=== PATIENT | female | born 1940 | race Caucasian/White ===

== ENCOUNTER → 2017-03-14 | Outpatient (CLI) | payer MEDICARE, BC ==
--- NOTE | 2017-03-15 09:09 | WOMENS IMAGING REPORT ---
EXAM DESCRIPTION: 3D SCREENING MAMMO BILAT COMPLETED DATE/TIME: 03/14/2017 11:24 am REASON FOR STUDY: SCREENING MAMMO Z12.31 ENCNTR SCREEN MAMMOGRAM FOR MALIGNANT NEOPLASM OF DL COMPARISON: 03/13/2016 and 03/01/2015. TECHNIQUE: Standard craniocaudal and mediolateral oblique views of each breast recorded using digita l acquisition and breast tomosynthesis. LIMITATIONS: None. FINDINGS: No masses, calcifications or architectural distortion. No areas of suspicion. Read with the assistance of CAD. .[facility] - R2 Cenova Version 1.3 .[facility] Imaging - R2 Cenova Version 1.3 .[facility] - R2 Cenova Version 2.4 .[facility] - R2 Cenova Version 2.4 .[facility] - R2 Neonatal Nurse Practitioner Version 9.2 IMPRESSION: NORMAL MAMMOGRAM. BIRADS 1. BREAST DENSITY: a. The breasts are almost entirely fatty. BIRAD: 1 NEGATIVE RECOMMENDATION: ROUTINE SCREENING COMMENT: The patient has been notified of the results by letter per SA requirements. Additional no tification policies are in place for contacting patient with suspicious or incomplete findings. Quality ID #225: The [employer] recommends an annual screening mammogram for women aged 40 years or over. This facility utilizes a reminder system to ensure that all patients receive reminder letters, and/or direct phone calls for appointments. This includes reminders for routine scr eening mammograms, diagnostic mammograms, or other Breast Imaging Interventions when appropriate. Th is patient will be placed in the appropriate reminder system. The [employer] (A[employer]) has developed recommendations for screening MRI of the breast s in certain patient populations, to be used in conjunction with mammography. Breast MRI surveillanc e may be appropriate for women with more than 20% lifetime risk of developing breast cancer as deter mined by genetic testing, significant family history of the disease, or history of mantle radiation f or Hodgkins Disease. ACR Practice Guidelines 2008. DBT Technology DBT is a type of tomographic mammography. With conventional mammography, overlapping breast tissue ma y make lesions difficult to detect, even with good compression. DBT uses an x-ray tube that rotates a round the breast, taking images at different angles. These images are then combined to create thin sl ices of the breast that the radiologist can view as a 3D reconstruction. The Ultracell unit can perform full-field digital mammograms (2D imaging); or DBT (3D imaging); or both, in a combination mode that quickly performs both the mammogram and the tomosynthesis scan while the breast is still compressed. PQRS 6045F: Fluoroscopic imaging is not utilized for breast tomosynthesis. TECHNICAL DOCUMENTATION: FINDING NUMBER: (1) ASSESSMENT: (1) JOB ID: [id number] [employer]- All Rights Reserved
== END ==
LOC: WI 11:00
DX: Z12.31 Encounter for screening mammogram for malignant neoplasm of breast (principal)
CPT/HCPCS: 77063; G0202; 77067

== ENCOUNTER → 2018-09-06 | Outpatient (CLI) | payer MEDICARE, BC ==
--- NOTE | 2018-09-06 12:46 | WOMENS IMAGING REPORT ---
EXAM DESCRIPTION: 3D SCREENING MAMMO BILAT COMPLETED DATE/TIME: 09/06/2018 11:46 am REASON FOR STUDY: Z12.31 ROUTINE 3D BILATERAL SCREENING Z12.31 ENCNTR SCREEN MAMMOGRAM FOR MALIGNAN T NEOPLASM OF DL COMPARISON: [id number] EXAM PARAMETERS: Views: Standard craniocaudal and mediolateral oblique views of each breast recorded using digital acquisition and breast tomosynthesis. Read with the assistance of CAD. .[facility] - [employer] Estimator Paperboard Boxes Version 9.2 LIMITATIONS: None. FINDINGS: No suspicious masses, suspicious calcifications or architectural distortion. No areas of c oncern. IMPRESSION: Assessment: Negative MAMMOGRAM. BIRADS 1. BREAST DENSITY: a. The breasts are almost entirely fatty. BIRAD: 1 NEGATIVE RECOMMENDATION: ROUTINE SCREENING COMMENT: The patient has been notified of the results by letter per SA requirements. Additional no tification policies are in place for contacting patient with suspicious or incomplete findings. Quality ID #225: The [employer] recommends an annual screening mammogram for women aged 40 years or over. This facility utilizes a reminder system to ensure that all patients receive reminder letters, and/or direct phone calls for appointments. This includes reminders for routine scr eening mammograms, diagnostic mammograms, or other Breast Imaging Interventions when appropriate. Th is patient will be placed in the appropriate reminder system. TECHNICAL DOCUMENTATION: FINDING NUMBER: (1) ASSESSMENT: (1) JOB ID: [id number] [employer]- All Rights Reserved Reading location - IP/workstation name: [email or web address]
== END ==
LOC: WI 11:24
PROVIDERS: ATTEND Physician Assistant Medical
DX: Z12.31 Encounter for screening mammogram for malignant neoplasm of breast (principal)
CPT/HCPCS: 77063; 77067

== ENCOUNTER 2018-10-29 08:48 | Day surgery (SDC) | payer MEDICARE, BC ==
[~2018-10-29 08:48] MED LIST: BUPIVACAINE HCL 0.75% INJ/PF (7.5 MG/1 ML) 10 ML SDV OS PRN; HYALURONATE SODIUM SYRINGE 0.55 ML ONE; KETOROLAC TROMETHAMINE 0.45% 4 DROP/0.4 ML DROPERETTE OS PRN; LIDOCAINE 4% INJ/PF (40 MG/ML) 5 ML AMPUL OS PRN
[2018-10-29] MEDS ORDERED: MIDAZOLAM 2 MG/2 ML INJ ONE (08:53)
[2018-10-29] MEDS: TROPICAMIDE 1% OPH SOLN 3 ML OS PRN ×3 (09:21→09:52)
[2018-10-29] MEDS: CYCLOPENTOLATE 0.2%/PHENYLEPHRINE 1% OPH SOLN 2 ML OS PRN ×3 (09:21→09:52)
[2018-10-29] MEDS: BESIFLOXACIN HCL 0.6% OPH SUSP 5 ML BOTTLE OS PRN ×4 (09:22→10:34)
[2018-10-29] MEDS: TETRACAINE HCL 0.5% OPH SOLN 0.6 ML DROPERETTE OS PRN ×3 (09:23→10:00)
[2018-10-29] MEDS: EPINEPHRINE INJ/PF 1 MG/1 ML AMPULE ONE ×2 (10:15)
[2018-10-29] MEDS: CHONDR SU A NA/HYALUR INTRAOC KIT (SURGICARE) ONE ×2 (10:15)
[2018-10-29] MEDS: LIDOCAINE 1% INJ-PF (10 MG/ML) 30 ML SDV ONE ×2 (10:15)
[2018-10-29] MEDS: DORZOLAMIDE HCL 2%/TIMOLOL MALEAT 0.5% OPH SOLN 10 ML OS PRN ×2 (10:34)
--- NOTE | 2018-10-29 12:20 | [facility] DISCHARGE SUMMARY E ---
[facility] Discharge Summary NAME: ANNE METZ AGE: 78Y ADMITTED: 10/29/2018 DISCHARGED: 10/29/2018 HOSPITAL COURSE: The patient is a 78-year-old lady who underwent uneventful cataract extraction with insertion of iStent Inject, left eye on 10/29/18. She will be discharged to home. She is instructed to resume preoperative medications, take Tylenol as needed for discomfort, to keep her eye shielded, to use Besivance, Durezol and PROLENSA at 3 p.m. and 8 p.m., to use Timolol at 8 p.m. and to follow up in my office in 1 day. DICTATING PHYSICIAN: LUCIANO MOMIN M.D. [id number] PHY#: [id number] ID: [id number] JOB#: [id number] ACCT: [id number] cc:LUCIANO MOMIN M.D. >
--- NOTE | 2018-10-29 12:20 | [facility] OPERATIVE REPORT E ---
[facility] Operative Report NAME: ANNE METZ AGE: 78Y DATE OF SURGERY: 10/29/2018 ROOM: PREOPERATIVE DIAGNOSIS: 1. CATARACT LEFT EYE. 2. PRIMARY OPEN ANGLE GLAUCOMA, LEFT EYE. POSTOPERATIVE DIAGNOSIS: 1. CATARACT LEFT EYE. 2. PRIMARY OPEN ANGLE GLAUCOMA, LEFT EYE. PROCEDURE PERFORMED: CATARACT EXTRACTION WITH INTRAOCULAR LENS IMPLANT WITH INSERTION OF ISTENT INJECT, LEFT EYE. SURGEON: LUCIANO MOMIN MD ANESTHESIA: TOPICAL WITH MAC. INDICATIONS FOR SURGERY: Difficulty with driving at night. INDICATIONS FOR ISTENT: Primary open angle glaucoma and desiring decreased use of topical eye drops. PROCEDURE: The patient was brought to the Operating Room and placed on the operative table. Following tetracaine drops, topical anesthesia was administered. This consisted of instrument wipe pledgets soaked in a solution of 4% Xylocaine mixed with 0.75% Marcaine in a 1:2 ratio. A 2 x 1 cm pledget was placed in the superior fornix. A 1 x 1 cm pledget was placed in the inferior fornix. The eye was patched shut for 5 minutes. The patch was removed. The eye was sterilely prepped and draped in the usual manner. Lid speculum was placed in the eye. The pledgets were removed. 4-0 black silk sutures were placed around the superior and the inferior rectus muscles to be used as traction. A conjunctival peritomy was made at the 10 o'clock position. Hemostasis was obtained with bipolar cautery. A posterior limbal groove was created using a crescent knife and dissected anteriorly towards the cornea. A sharp point blade was used to create a paracentesis site at the 2 o'clock position. A 2.4 mm keratome was used to enter the anterior chamber through the groove. Viscoelastic was injected into the anterior chamber. An anterior capsulotomy was performed using Utrata forceps in a capsulorrhexis fashion. Hydrodissection and hydrodelineation were performed. Phacoemulsification was performed in [id number] technique. A total of 4.97 CDE phaco time was used. Following this, the I/A unit was used to remove residual cortex. Viscoelastic was injected into the capsular bag. Intraocular lens model [id number], 19.0 diopters, serial number [id number] was placed in the capsular bag. Following insertion of the lens implant, the anterior chamber was expanded with viscoelastic. The eye was rotated inferiorly and a gonio prism was placed on the eye. The anterior chamber angle and trabecular meshwork were easily visualized. The iStent was opened. The iStent was injected through the incision and 2 iStent Inject devices were placed inferiorly at the 6 and 8 o'clock positions. The iStents had good blood reflux through the stents and were well-positioned. Following this, the I/A unit was used to remove residual viscoelastic. The incision was seen to be water tight under high and low pressure. No sutures were placed, the 4-0 black silk sutures and lid speculum removed. The eye was shielded after Cosopt and Besivance drops were placed. DICTATING PHYSICIAN: LUCIANO MOMIN M.D. DICTATING PHYSICIAN: LUCIANO MOMIN M.D. [id number] PHY#: [id number] ID: [id number] JOB#: [id number] ACCT: [id number] cc:LUCIANO MOMIN M.D. > MTDD
== END 2018-10-29 11:20 | disposition home or self-care (01) ==
LOC: SC 08:48
PROVIDERS: ATTEND Ophthalmology
DX: H25.813 Combined forms of age-related cataract, bilateral (principal); H04.123 Dry eye syndrome of bilateral lacrimal glands; H35.3121 Nonexudative age-related macular degeneration, left eye, early dry stage; H43.813 Vitreous degeneration, bilateral; H40.1121 Primary open-angle glaucoma, left eye, mild stage; I10 Essential (primary) hypertension; R01.1 Cardiac murmur, unspecified; I34.1 Nonrheumatic mitral (valve) prolapse
CPT/HCPCS: 66984; C1783; V2632; J2250; J3490 ×5; A9270; J0171; 142